=== PATIENT | female | born 1985 | race African-American/Black ===

== ENCOUNTER 2016-08-26 21:00 | Emergency (ER) | payer OTHER ==
[~2016-08-26] VITALS: Ht 165.1 cm; Wt 104.3 kg
[2016-08-26] MEDS ORDERED: DIAZEPAM 5 MG/ML 2ML SYRG IM ONE (23:15)
[2016-08-26 23:21] VITALS: BP 129/80
== END 2016-08-26 23:59 | disposition home or self-care (01) ==
LOC: EDBD 21:18 → ER 21:18
DX: M54.12 Radiculopathy, cervical region (principal); M25.511 Pain in right shoulder
CPT/HCPCS: 96372; 99283; J3360